=== PATIENT | male | born 1935 | race Caucasian/White ===

== ENCOUNTER 2017-12-06 11:20 | Observation (INO) ==
[2017-12-06] MEDS ORDERED: Isovue-370 500 ML INFUS..BTL IV ONE (12:39)
--- NOTE | 2017-12-06 12:46 | Emergency Department Note ---
Disposition Clinical Impression: Lower extremity edema, Elevated troponin I level CHF (congestive heart failure) Qualifiers: Heart failure type: unspecified Heart failure chronicity: acute Qualified Code( s): I50.9 - Heart failure, unspecified Ascites Qualifiers: Ascites type: other type Qualified Code(s): R18.8 - Other ascites Disposition: Admitted As Inpatient Condition: Fair Referrals: Timmy Pittman MD [Primary Care Provider] - Forms: ED Satisfaction Letter Time of Disposition: 17:10 General Adult HPI - General Chief complaint: ED Extremity Problem,Nontraumatic Stated complaint: bilat LE edema Time Seen by Provider: 12/06/17 11:32 Source: patient, family Mode of arrival: ambulatory Limitations: no limitations Nursing Notes Reviewed: Yes Vital Signs Reviewed: Yes - History of Present Illness HPI Narrative: The patient is a 82 year old male who presented with bilateral lower extremity edema. He stated his right leg has been swollen for the past two months but has worsened in the past few days and is now weeping from a sore on the lower leg. His left leg started to swell 2 days ago as well. He also reports orthopnea and dyspnea on exertion, constipation, and nausea for the past 2 months. He feels that his legs are heavy and cold. He reported feeling that his abdomen is swollen. He denied chest pain, leg pain, coughing, history of blood clots. 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 He states he lives at home alone and takes his own medications daily. His girlfriend is in the room who states he has been forgetting to take some of his medications recently. He had a colonoscopy 1 week ago due to his 2 month history of constipation and nausea and the patient stated this showed polyps. Onset (ago): month(s) (2) Pain Scale: 0 Consistency: Worsening Improves with: nothing Worsens with: nothing Associated symptoms: Reports: shortness of breath, weakness. Denies: chest pain , cough, fever/chills, nausea/vomiting Treatments Prior to Arrival: none - Related Data Home Medications Medication Instructions Recorded Confirmed Apixaban [Eliquis] 5 mg PO BID 12/06/17 12/06/17 Atorvastatin [Lipitor] 40 mg PO HS 12/06/17 12/06/17 Donepezil [Aricept] 5 mg PO HS 12/06/17 12/06/17 Lisinopril [Zestril] 40 mg PO DAILY 12/06/17 12/06/17 Memantine HCl 10 mg PO DAILY 12/06/17 12/06/17 Nitroglycerin [Nitrostat] 0.4 mg SL Q5M PRN MDD [id number] CALL 12/06/17 12/06/17 911 Torsemide [Torsemide] 5 mg PO DAILY 12/06/17 12/06/17 hydroCHLOROthiazide 25 mg PO DAILY 12/06/17 12/06/17 [Hydrochlorothiazide] metFORMIN [Glucophage] 1,000 mg PO BIDWM 12/06/17 12/06/17 Allergies Allergy/AdvReac Type Severity Reaction Status Date / Time mold Allergy Nausea Verified 03/16/17 16:34 Penicillins [PCN] Allergy Rash Verified 03/16/17 16:34 dust Allergy Nausea Uncoded 03/16/17 16:34 All systems ED: reviewed and negative except as stated. Constitutional: Reports: as per HPI, weakness, weight change (weight gain). Denies: fever, chills Cardiovascular: Reports: dyspnea on exertion, orthopnea, edema. Denies: chest pain Respiratory: Reports: dyspnea. Denies: cough, hemoptysis Gastrointestinal: Reports: nausea, constipation. Denies: abdominal pain, vomiting, diarrhea, hematemesis, melena, hematochezia Genitourinary: Denies: dysuria, hematuria Musculoskeletal: Denies: back pain, neck pain, arthralgia, myalgia Integumentary: Reports: other (2 cm weeping skin lesion on right medial lower leg ) Neurological: Reports: confusion. Denies: headache, weakness, numbness Allergic/Immunologic: Denies: facial swelling, urticaria Past Medical History - Past Medical History Attestation: Yes The following information was validated with the patient. Source: patient, obtained from family Medical history: Reports: atrial fibrillation, coronary artery disease, dementia , diabetes, hyperlipidemia, hypertension, other Surgical history: Reports: angioplasty/stent, pacemaker/AICD Psychiatric history: Reports: no psych history - Social History Smoking Status: Never smoker Smokeless Tobacco Status: No Alcohol use: Reports: none Drug use: Reports: none Physical Exam - General Limitations: no limitations General appearance: alert - Head Head exam: atraumatic, normocephalic - Eye Eye exam: Present: EOMI - Neck Neck exam: Present: normal inspection, full ROM, trachea midline - Chest Chest inspection: Present: normal inspection, symmetric chest wall rise - Respiratory Respiratory exam: Present: other (rales in right lower lobe). Absent: respiratory distress, wheezes, stridor - Cardiovascular Cardiovascular exam: Present: regular rate, normal rhythm, systolic murmur - Abdominal Exam Abdominal exam: Present: soft, Non-Tender, rigidity, normal bowel sounds, ascites. Absent: guarding, rebound - Extremities Exam Extremities exam: Present: pedal edema, other (2+ pitting edema in right leg up to middle thigh. 1+ pitting edema in left lower extremity up to proximal tibia. ). Absent: calf tenderness - Expanded Lower Extremity Exam Lower leg exam: Absent: tenderness, erythema, Homans' sign - Neurological Exam Neurological exam: Present: alert - Psychiatric Psychiatric exam: Present: normal affect, normal mood - Skin Skin exam: Present: other (2 cm weeping lesion on right medial lower leg. Brown- red skin discoloration consistent with venous stasis in right lower leg. Dorsalis pedis and posterior tibial pulses not palpable in bilateral lower extremities. Capillary refill 4 seconds in bilateral feet. ) Course Course Narrative: Patient seen and examined. Complaint of shortness of breath, orthopnea, pitting lower external edema worsening over the last 2 months. Also recently noticed his abdomen swelling. Bedside ED ultrasound did show signs of ascites. At bedside, patient does have 2+ pitting edema in the bilateral lower extremities. No calf tenderness. I do not feel that patient has DVTs. We will get bilateral ABIs since we are unable to palpate pulses. Also get CT imaging of the abdomen and pelvis since he is having this new onset ascites without any history of liver disease. We will get basic lab work as well as chest x-ray, troponin, BNP and EKG. - Reevaluation(s) Reevaluation #1: NNEKA exam was normal. Labwork shows some signs of congestive heart failure. His BNP elevated in the 600s. His troponin is also elevated at 0.06. Suspect this is more secondary to demand ischemia as he has not had any chest pain. We will give him an aspirin as well. CT of the abdomen and pelvis that showed mild to moderate amount of ascites with signs of possible cirrhosis of the liver. His LFTs are mildly elevated. We will admit for further workup of congestive heart failure, new onset ascites. Discussed with the hospitalist Dr. Mckenzie who has accepted patient for admission. Time: 17:10 Vital Signs Temperature 97.4 F L 12/06/17 11:47 Pulse Rate 87 12/06/17 11:47 Respiratory Rate 16 12/06/17 11:47 Blood Pressure 167/108 12/06/17 11:47 O2 Sat by Pulse Oximetry 94 12/06/17 11:47 Temperature 97.4 F L 12/06/17 11:56 Pulse Rate 72 12/06/17 13:36 Respiratory Rate 16 12/06/17 13:36 Blood Pressure 156/120 12/06/17 13:36 O2 Sat by Pulse Oximetry 98 12/06/17 13:36 Oxygen Delivery Oxygen Delivery Room Air Medical Decision Making - Medical Records Medical records reviewed: Yes I reviewed the patient's medical records. - Lab Data Lab results reviewed: Yes I reviewed the patient's lab results. Result diagrams: 12/06/17 12:29 12/06/17 12:29 Lab Results 12/06/17 12/06/17 12/06/17 Range/Units 12:21 12:29 12:29 WBC 7.9 (4.3-11.1) K/mcL RBC 4.96 (4.19-5.50) M/mcL Hgb 15.1 (12.9-16.9) g/dL Hct 46.2 (37.5-50.1) % MCV 93.1 (83.0-100.0) fL MCH 30.4 (28.0-33.3) pg MCHC 32.7 (31.6-35.5) g/dL RDW 15.5 H (11.5-14.5) % Plt Count 183 (140-400) K/mcL MPV 10.2 (9.4-12.4) fL Immature Gran % 0.4 (0-4) % Seg Neutrophils % 79.4 % Lymphocytes % 8.9 % Monocytes % 7.1 % Eosinophils % 3.7 % Basophils % 0.5 % Neutrophils # 6.3 (1.6-8.9) K/mcL Lymphocytes # 0.7 (0.6-4.6) K/mcL Monocytes # 0.6 (0.0-1.3) K/mcL Eosinophils # 0.3 (0.0-0.6) K/mcL Basophils # 0.0 (0.0-0.2) K/mcL PT (9.4-12.1) Seconds INR APTT (26.0-36.0) Seconds Sodium 134 L (136-145) mEq/L Potassium 4.1 (3.5-5.1) mEq/L Chloride 100 (98-107) mEq/L Carbon Dioxide 22 L (23-29) mEq/L BUN 22 (8-23) mg/dL Creatinine 0.95 (0.70-1.30) mg/dL Est GFR ( Amer) > 60 (> 60) Est GFR (Non-Af Amer) > 60 (> 60) BUN/Creatinine Ratio 23 (6-26) Glucose 112 H (70-105) mg/dL Calculated Osmolality 282 (280-300) Calcium 9.5 (8.6-10.3) mg/dL Total Bilirubin 2.0 H (0.3-1.0) mg/dL Direct Bilirubin 0.6 H (0.0-0.2) mg/dL Indirect Bilirubin 1.4 H (0.0-1.2) mg/dL AST 43 H (13-39) Units/L ALT 32 (7-52) Units/L Alkaline Phosphatase 164 H (34-104) Units/L Troponin I 0.06 H* (< 0.04) ng/mL B-Natriuretic Peptide 665 H (Less than 100) pg/mL Serum Total Protein 6.8 (6.4-8.9) g/dL Albumin 3.8 (3.5-5.7) g/dL Globulin 3.0 (2.4-3.5) g/dL Albumin/Globulin Ratio 1.3 (1.1-2.2) 12/06/17 Range/Units 12:39 WBC (4.3-11.1) K/mcL RBC (4.19-5.50) M/mcL Hgb (12.9-16.9) g/dL Hct (37.5-50.1) % MCV (83.0-100.0) fL MCH (28.0-33.3) pg MCHC (31.6-35.5) g/dL RDW (11.5-14.5) % Plt Count (140-400) K/mcL MPV (9.4-12.4) fL Immature Gran % (0-4) % Seg Neutrophils % % Lymphocytes % % Monocytes % % Eosinophils % % Basophils % % Neutrophils # (1.6-8.9) K/mcL Lymphocytes # (0.6-4.6) K/mcL Monocytes # (0.0-1.3) K/mcL Eosinophils # (0.0-0.6) K/mcL Basophils # (0.0-0.2) K/mcL PT 20.5 H (9.4-12.1) Seconds INR 1.8 APTT 35.3 (26.0-36.0) Seconds Sodium (136-145) mEq/L Potassium (3.5-5.1) mEq/L Chloride (98-107) mEq/L Carbon Dioxide (23-29) mEq/L BUN (8-23) mg/dL Creatinine (0.70-1.30) mg/dL Est GFR ( Amer) (> 60) Est GFR (Non-Af Amer) (> 60) BUN/Creatinine Ratio (6-26) Glucose (70-105) mg/dL Calculated Osmolality (280-300) Calcium (8.6-10.3) mg/dL Total Bilirubin (0.3-1.0) mg/dL Direct Bilirubin (0.0-0.2) mg/dL Indirect Bilirubin (0.0-1.2) mg/dL AST (13-39) Units/L ALT (7-52) Units/L Alkaline Phosphatase (34-104) Units/L Troponin I (< 0.04) ng/mL B-Natriuretic Peptide (Less than 100) pg/mL Serum Total Protein (6.4-8.9) g/dL Albumin (3.5-5.7) g/dL Globulin (2.4-3.5) g/dL Albumin/Globulin Ratio (1.1-2.2) - Radiology Data Radiology results reviewed: Yes I reviewed the patient's radiology results. Chest X-Ray 12/06/17 12:19 IMPRESSION: No acute findings D/ / Samara Heredia MD / Samara Heredia MD Interpreting Provider: Samara Heredia MD - EKG Data EKG #1 EKG attestation: Yes I reviewed and interpreted this EKG. EKG results narrative: EKG done at 1233 shows ventricular paced rhythm with a rate of 71 bpm. No signs of acute ST elevation or depression. Inverted T waves noted in leads 1 and aVL. Unchanged from prior EKG done 09/14/2013.
[2017-12-06 14:38] LABS: Basophils % 0.5 %; Eosinophils # 0.3 K/mcL (0.0-0.6); Eosinophils % 3.7 %; Hematocrit 46.2 % (37.5-50.1); Hemoglobin 15.1 g/dL (12.9-16.9); Immature Granulocytes % 0.4 % (0-4); Lymphocytes # 0.7 K/mcL (0.6-4.6); Lymphocytes % 8.9 %; Mean Corpuscular HGB Conc 32.7 g/dL (31.6-35.5); Mean Corpuscular Hemoglobin 30.4 pg (28.0-33.3); Mean Corpuscular Volume 93.1 fL (83.0-100.0); Mean Platelet Volume 10.2 fL (9.4-12.4); Monocytes # 0.6 K/mcL (0.0-1.3); Monocytes % 7.1 %; Neutrophils # 6.3 K/mcL (1.6-8.9); Platelet Count 183 K/mcL (140-400); Red Blood Count 4.96 M/mcL (4.19-5.50); Red Cell Distribution Width 15.5 % (11.5-14.5); Segmented Neutrophils % 79.4 %
[2017-12-06 14:43] LABS: INR 1.8; Prothrombin Time 20.5 Seconds (9.4-12.1)
--- NOTE | 2017-12-06 14:44 | Emergency Department Note ---
Disposition Clinical Impression: Lower extremity edema Disposition: Still a Patient Condition: Fair Referrals: Timmy Pittman MD [Primary Care Provider] - Forms: ED Satisfaction Letter General Adult HPI - General Chief complaint: ED Extremity Problem,Nontraumatic Stated complaint: bilat LE edema Time Seen by Provider: 12/06/17 11:32 Source: patient, family Mode of arrival: ambulatory Limitations: no limitations Nursing Notes Reviewed: Yes Vital Signs Reviewed: Yes - History of Present Illness Pain Scale: 0 - Related Data Home Medications Medication Instructions Recorded Confirmed Amlodipine Besylate 03/13/16 Aricept 03/13/16 Atorvastatin Calcium 03/13/16 Eliquis 03/13/16 Finasteride 03/13/16 Hydrochlorothiazide 03/13/16 Lisinopril 03/13/16 Metformin HCl 03/13/16 Namenda 03/13/16 Nitroglycerin 03/13/16 Tamsulosin HCl 03/13/16 Tramadol HCl 03/13/16 Tylenol 03/13/16 Allergies Allergy/AdvReac Type Severity Reaction Status Date / Time mold Allergy Nausea Verified 03/16/17 16:34 Penicillins [PCN] Allergy Rash Verified 03/16/17 16:34 dust Allergy Nausea Uncoded 03/16/17 16:34 Constitutional: Reports: as per HPI, weakness, weight change (weight gain). Denies: fever, chills Cardiovascular: Reports: dyspnea on exertion, orthopnea, edema. Denies: chest pain Respiratory: Reports: dyspnea. Denies: cough, hemoptysis Gastrointestinal: Reports: nausea, constipation. Denies: abdominal pain, vomiting, diarrhea, hematemesis, melena, hematochezia Genitourinary: Denies: dysuria, hematuria Musculoskeletal: Denies: back pain, neck pain, arthralgia, myalgia Integumentary: Reports: other (2 cm weeping skin lesion on right medial lower leg ) Neurological: Reports: confusion. Denies: headache, weakness, numbness Allergic/Immunologic: Denies: facial swelling, urticaria Past Medical History - Past Medical History Medical history: Reports: atrial fibrillation, coronary artery disease, dementia , diabetes, hyperlipidemia, hypertension, other Surgical history: Reports: angioplasty/stent, pacemaker/AICD Psychiatric history: Reports: no psych history - Social History Smoking Status: Never smoker Smokeless Tobacco Status: No Alcohol use: Reports: none Drug use: Reports: none Physical Exam - General Limitations: no limitations General appearance: alert Course Vital Signs Temperature 97.4 F L 12/06/17 11:47 Pulse Rate 87 12/06/17 11:47 Respiratory Rate 16 12/06/17 11:47 Blood Pressure 167/108 12/06/17 11:47 O2 Sat by Pulse Oximetry 94 12/06/17 11:47 Temperature 97.4 F L 12/06/17 11:56 Pulse Rate 72 12/06/17 13:36 Respiratory Rate 16 12/06/17 13:36 Blood Pressure 156/120 12/06/17 13:36 O2 Sat by Pulse Oximetry 98 12/06/17 13:36 Oxygen Delivery Oxygen Delivery Room Air Attestation Statement - Attestation Attestation: I, Rikki Tidwell, examined this patient and my medical decision-making was reviewed with the CARGO CHECKER/PA/Advanced Practice Nurse/Resident Physician. I agree with the documented findings, disposition and treatment plan as described except to the extent set forth below. 82-year-old male presents emergency Department with concerns of bilateral lower extremity edema as well as increasing weakness and difficulty breathing with ambulation. Patient states symptoms have been worsening over the past month and a half. Patient reports right lower extremity started swelling within the past month and now the left lower extremity history of swelling within the past few days. Patient has pain in the lower extremities with ambulation as well as dyspnea with exertion. On physical exam the patient has pitting edema to his lower abdomen. Bedside ultrasound showed free fluid within the abdominal cavity , patient states he has no history of previous liver disease. Patient had easily collapsible veins in the bilateral lower extremities at 3 separate points in the thigh as well as the popliteal region bilaterally, making DVT less likely. We had difficulty finding the pulses in the bilateral lower extremity in the dorsalis pedis and posterior tibial aspects by palpation and by Doppler. Pulses were easily found in the popliteal region bilaterally. Cap refill was 4 seconds in bilateral lower extremity. We obtained NNEKA to further evaluate arterial insufficiency. Laboratory evaluation and imaging studies pending at this time. Patient will likely be admitted to the hospital for further care and evaluation.
[2017-12-06 14:46] LABS: Activated Partial Thrombo Time 35.3 Seconds (26.0-36.0)
[2017-12-06 14:59] LABS: BUN/Creatinine Ratio 23 (6-26); Blood Urea Nitrogen 22 mg/dL (8-23); Calcium 9.5 mg/dL (8.6-10.3); Carbon Dioxide 22 mEq/L (23-29); Chloride 100 mEq/L (98-107); Glucose 112 mg/dL (70-105); Osmolality,Calculated 282 (280-300); Potassium 4.1 mEq/L (3.5-5.1); Sodium 134 mEq/L (136-145); eGFR For Non-African Americans > 60 (> 60)
[2017-12-06 15:04] LABS: Troponin I 0.06 ng/mL (< 0.04)
[2017-12-06] MEDS ORDERED: Furosemide 40 MG/4 ML VIAL IVP ONE (15:05)
[2017-12-06] MEDS ORDERED: Aspirin 325 MG TABLET PO ONE (15:11)
[2017-12-06 16:07] LABS: Alanine Aminotransferase 32 Units/L (7-52); Albumin 3.8 g/dL (3.5-5.7); Albumin/Globulin Ratio 1.3 (1.1-2.2); Alkaline Phosphatase 164 Units/L (34-104); Aspartate Amino Transferase 43 Units/L (13-39); Bilirubin,Direct 0.6 mg/dL (0.0-0.2); Bilirubin,Indirect 1.4 mg/dL (0.0-1.2); Total Protein 6.8 g/dL (6.4-8.9)
[2017-12-06 17:37] LABS: Bilirubin,Urine Negative (Negative); Blood,Urine Moderate (Negative); Clarity,Urine Clear (Clear); Color,Urine Yellow (Yellow); Glucose,Urine (UA) Normal (Normal); Ketones,Urine Negative (Negative); Leukocyte Esterase,Urine Negative (Negative); Nitrite,Urine Negative (Negative); Protein,Urine 100 mg/dL (Neg-Trace); Specific Gravity,Urine 1.012 (1.010-1.025); Urobilinogen,Urine Normal (Normal)
[2017-12-06 17:38] LABS: Bacteria,Urine None Seen per hpf (None-Few); Hyaline Casts,Urine None Seen per lpf (None-Few); RBC,Urine 30-50 per hpf (0-3); Squamous Epithelial Cell,Urine None Seen per lpf (None-Few); WBC,Urine 0-3 per hpf (0-3)
[2017-12-06] MEDS ORDERED: Naloxone 0.4 MG/ML INJ IVP PRN (18:09)
[2017-12-06] MEDS ORDERED: traMADol 50 MG TABLET PO PRN (18:09)
[2017-12-06] MEDS ORDERED: *HR* OxyCODONE Immed Rel 5 MG TABLET PO PRN (18:09)
[2017-12-06] MEDS ORDERED: Acetaminophen 325 MG TABLET PO PRN (18:09)
[2017-12-06] MEDS ORDERED: Nitroglycerin 0.4 MG TAB.SUBL SL PRN (18:12)
--- NOTE | 2017-12-06 18:20 | Internal Med History&Physical ---
Date of Encounter: 12/06/17 Time of Encounter: 17:50 Internal Medicine - H&P: HPI Chief complaint: Feet swelling Admitted From: Emergency Dept Plans for Post Hospital Care: Home History of present illness: Mr. Zhang is a 82 year old male with hx of a fib on Eliquis presented to ED due to bilateral lower extremity swelling and weakness. He was evaluated and subsequently placed in observation for further work up. Mr Zhang stated he has had progressive lower extremity swelling over the last 4 -6 weeks. He feels it has worsened over the last couple of days despite being on Demedex and HCTZ. He has also developed some orthopnea, PND and dyspnea on exertion that has been progressive. He has had persistent nausea over last couple months and did see GI. He had EGD which showed gastritis (? related to portal HTN) and colonoscopy which had polyps and otherwise negative. He has had worsening issues with memory as well over last few weeks. No fever or chills. He had some abdominal pain when he went to see GI but it is better today. At this time he is most concerned about his swelling. He had NNEKA in ED which was normal. BNP was elevated. CT in ED showed ascites and nodular liver. Past Med Surg Social Fam HX - Past Medical History Source: patient, old records reviewed Medical history: atrial fibrillation, coronary artery disease, dementia, diabetes, hyperlipidemia, hypertension, other Additional medical history: Pacemaker, BPH Psychiatric history: no psych history - Past Surgical History Surgical History: angioplasty/stent, pacemaker/AICD Additional surgical history: colonoscopy (polyp removal), L carpel tunnel release - Social History Smoking Status: Never smoker Smokeless Tobacco Status: No Alcohol use: none Drug use: none - Family History Father Hx Family Cardiac Disorders: Yes (heart disease) Mother Hx Family Cardiac Disorders: Yes (Heart disease) Internal Medicine - H&P: Meds Apixaban [Eliquis] 5 mg PO BID 12/06/17 [History] Atorvastatin [Lipitor] 40 mg PO HS 12/06/17 [History] Donepezil [Aricept] 5 mg PO HS 12/06/17 [History] Lisinopril [Zestril] 40 mg PO DAILY 12/06/17 [History] Memantine HCl 10 mg PO DAILY 12/06/17 [History] Nitroglycerin [Nitrostat] 0.4 mg SL Q5M PRN MDD [id number] CALL 911 12/06/17 [ History] Torsemide [Torsemide] 5 mg PO DAILY 12/06/17 [History] hydroCHLOROthiazide [Hydrochlorothiazide] 25 mg PO DAILY 12/06/17 [History] metFORMIN [Glucophage] 1,000 mg PO BIDWM 12/06/17 [History] 3 Allergy/AdvReac Type Severity Reaction Status Date / Time mold Allergy Nausea Verified 03/16/17 16:34 Penicillins [PCN] Allergy Rash Verified 03/16/17 16:34 dust Allergy Nausea Uncoded 03/16/17 16:34 All Systems PM: A 10-system review of systems was performed and is negative for pertinent findings except as documented above in the HPI. - Constitutional Constitutional: fatigue, weakness, weight gain - EENT Eyes: no blurry vision, no discharge, no photophobia Ears: no decreased hearing Nose, mouth and throat: no dry mouth, no dysphagia, no mouth pain, no sinus pressure, no sore throat - Cardiovascular Cardiovascular ROS IM: dyspnea, dyspnea on exertion, edema, orthopnea, paroxysmal nocturnal dyspnea, no chest pain, no claudication, no diaphoresis - Respiratory Respiratory: dyspnea, dyspnea on exertion, no wheezing, no chest congestion, no pain with cough - Gastrointestinal Gastrointestinal: abdominal pain, bloating, nausea, vomiting, no diarrhea, no dyspepsia, no hematemesis - Genitourinary Genitourinary ROS male: urinary frequency, no dysuria, no nocturia - Musculoskeletal Musculoskeletal ROS IM: arthralgias, no joint swelling, no stiffness - Integumentary Integumentary IM: no erythema, no rash - Neurological Neurological ROS: memory loss, no dizziness, no focal weakness, no weakness - Endocrine Endocrine IM: no cold intolerance, no flushing, no heat intolerance - Hematologic/Lymphatic Hematologic/Lymphatic: easy bleeding (Eliquis) - Allergic/Immunologic Allergic/Immunologic: no itchy eyes, no wheezing - Constitutional Vitals: Temp Pulse Resp BP Pulse Ox 97.4 F L 72 16 156/120 98 12/06/17 11:56 12/06/17 13:36 12/06/17 13:36 12/06/17 13:36 12/06/17 13:36 General appearance: Present: A&O X 3, pleasant, answers questions appropriately Exam: See below - Head Head exam: Present: atraumatic, normocephalic - Eye Eye exam: Present: EOMI, conjuntiva pink. Absent: scleral icterus - ENT ENT exam: Present: mucous membranes moist, normal external ear exam - Neck Neck exam general surgery: Present: normal inspection. Absent: thyromegaly - Respiratory Respiratory exam: Present: decreased breath sounds, CTAB. Absent: rales, rhonchi, wheezes - Cardiovascular Cardiovascular exam: Present: distant heart sounds, RRR. Absent: tachycardia Additional comments: Paced on monitor - GI/Abdominal GI/Abdominal exam: Present: distended, hypoactive bowel sounds, soft. Absent: mass, tenderness - Extremities Exam Extremities exam: Present: tenderness, warm Additional comments: Dependent rubor noted. Edema to thighs bilaterally. - Neurological Exam Neurological exam: Present: alert, oriented X3, no focal deficits Additional comments: No asterixis - Skin Skin exam: Present: dry, warm Additional comments: Dependent rubor Internal Med - H&P Results - Labs CBC & Chem 7: 12/06/17 12:29 12/06/17 12:29 - Assessment and plan (1) CHF (congestive heart failure) Current Visit: Yes Status: Suspected Assessment and plan: Pt has edema, dyspnea, orthopnea and PND Has hx of CAD and a fib Will check echo to eval LVEF Continue diuresis Monitor renal function and electrolytes Qualifiers: Heart failure type: systolic Heart failure chronicity: acute Qualified Code(s): I50.21 - Acute systolic (congestive) heart failure (2) Cirrhosis Current Visit: Yes Status: Acute Assessment and plan: Pt has evidence of cirrhosis on CT of abdomen. Has ascites as well. Edema of bilateral lower extremities. Will place in observation. Diurese. Hold statin and metformin Check hepatitis studies tonight and ammonia level. May benefit from GI consult depending on results. Hold Eliquis in event he needs paracentesis Qualifiers: Hepatic cirrhosis type: unspecified hepatic cirrhosis Ascites presence: with ascites Qualified Code(s): K74.60 - Unspecified cirrhosis of liver; R18.8 - Other ascites (3) Atrial fibrillation Current Visit: Yes Status: Chronic Assessment and plan: Hx of atrial fibrillation. Has pacer due to bradycardia. Continue his rate control meds. Hold Eliquis tonight in case needs any procedure. Qualifiers: Atrial fibrillation type: chronic Qualified Code(s): I48.2 - Chronic atrial fibrillation (4) Diabetes Current Visit: Yes Status: Chronic Assessment and plan: Hold metformin and add SSI. Accuchecks ordered. Qualifiers: Diabetes mellitus type: type 2 Diabetes mellitus manager terminal insulin use: without manager terminal use Diabetes mellitus complication status: without complication Qualified Code(s): E11.9 - Type 2 diabetes mellitus without complications (5) Hypertension Current Visit: Yes Status: Chronic Assessment and plan: Controlled at this time Continue Lisinopril Holding HCTZ while giving Lasix IV Qualifiers: Hypertension type: essential hypertension Qualified Code(s): I10 - Essential (primary) hypertension (6) BPH (benign prostatic hyperplasia) Current Visit: Yes Status: Chronic Assessment and plan: On Proscar. Qualifiers: Lower urinary tract symptom presence: symptoms absent Qualified Code(s): N40.0 - Benign prostatic hyperplasia without lower urinary tract symptoms (7) Dementia Current Visit: Yes Status: Chronic Assessment and plan: Hx of dementia on Aricept and Namenda Continue meds for now. Check ammonia level as reportedly his memory is worse recently. Qualifiers: Dementia type: Alzheimer's disease Alzheimer's disease onset: late-onset Dementia behavioral disturbance: without behavioral disturbance Qualified Code (s): G30.1 - Alzheimer's disease with late onset; F02.80 - Dementia in other diseases classified elsewhere without behavioral disturbance - Time Spent With Patient Total time spent is greater than 50% in coordination of care (as documented) at patient's floor/unit and/or counseling patient:
[2017-12-06] MEDS ORDERED: D5% in Water 1,000 ML IVC PRN (18:39)
[2017-12-06] MEDS ORDERED: *HR* Dextrose 50 % in Water (Syg) 50 ML SYRINGE IVP PRN (18:39)
[2017-12-06] MEDS ORDERED: Dextrose Gel 15 GM/37.5 ML TUBE PO PRN ×2 (18:39)
[2017-12-06] MEDS ORDERED: Apixaban 5 MG TABLET PO SCH (21:00)
[2017-12-06 21:06] LABS: Estimated Average Glucose 151 mg/dl; Hemoglobin A1C 6.9 %
[2017-12-06] MEDS: Insulin LISPRO 300 UNITS/3 ML VIAL SQ SCH (21:57)
[2017-12-07 02:41] LABS: Basophils % 0.4 %; Eosinophils # 0.4 K/mcL (0.0-0.6); Eosinophils % 5.6 %; Hematocrit 41.2 % (37.5-50.1); Immature Granulocytes % 0.4 % (0-4); Lymphocytes # 0.7 K/mcL (0.6-4.6); Lymphocytes % 9.2 %; Mean Corpuscular HGB Conc 32.3 g/dL (31.6-35.5); Mean Corpuscular Hemoglobin 29.9 pg (28.0-33.3); Mean Corpuscular Volume 92.6 fL (83.0-100.0); Mean Platelet Volume 9.9 fL (9.4-12.4); Monocytes # 0.7 K/mcL (0.0-1.3); Monocytes % 10.2 %; Neutrophils # 5.3 K/mcL (1.6-8.9); Platelet Count 169 K/mcL (140-400); Red Blood Count 4.45 M/mcL (4.19-5.50); Red Cell Distribution Width 15.3 % (11.5-14.5); Segmented Neutrophils % 74.2 %
[2017-12-07 02:45] LABS: Hemoglobin 13.3 g/dL (12.9-16.9)
[2017-12-07 02:56] LABS: BUN/Creatinine Ratio 25 (6-26); Blood Urea Nitrogen 25 mg/dL (8-23); Calcium 9.2 mg/dL (8.6-10.3); Carbon Dioxide 27 mEq/L (23-29); Chloride 100 mEq/L (98-107); Chol/HDL Ratio 4.9 (0-4.9); Cholesterol 113 mg/dL (< 200); Glucose 125 mg/dL (70-105); HDL Cholesterol 23 mg/dL (40-59); LDL Cholesterol,Calculated 75 mg/dL (0-99); Magnesium 1.7 mg/dL (1.6-2.6); Osmolality,Calculated 288 (280-300); Sodium 136 mEq/L (136-145); Triglycerides 75 mg/dL (< 150); eGFR For Non-African Americans > 60 (> 60)
[2017-12-07] MEDS: Insulin LISPRO 300 UNITS/3 ML VIAL SQ SCH ×4 (07:26→21:26)
[2017-12-07] MEDS: Lisinopril 20 MG TABLET PO SCH (07:36)
[2017-12-07] MEDS: Furosemide 20 MG/2 ML VIAL IVP SCH ×2 (07:36→17:18)
--- NOTE | 2017-12-07 08:49 | Internal Med Progress Note ---
<Gaudencio Cavanaugh - Last Filed: 12/07/17 13:55> Hospitalist Progress Note - Encounter Date of Encounter: 12/07/17 Time of Encounter: 09:00 - Subjective Interval History: Patient seen and examined at bedside. Patient reports continued abdominal discomfort, states this is his chief complaint. However, patient is found to be in an acute CHF exacerbation based on BNP and fluid status, possibly due to non- adherence of his diuretic medications at home in the context of increasing dementia. Patient does indicate that he feels better since his admission. He has been voiding well, -1,225mL since admission. He continues to deny chest pain , dyspnea at rest, fever, chills, wheezing, coughing. No new complaints since admission. Patient currently awaiting bedside Echo. - Exam Vitals: Temp Pulse Resp BP Pulse Ox 97.5 F L 71 14 149/98 90 12/07/17 06:16 12/07/17 06:16 12/07/17 06:16 12/07/17 08:15 12/07/17 06:16 Exam: General: Atraumatic normocephalic Eyes: EOMI, non-icteric Throat: mucus membranes moist, trachea midline, no thyromegaly, no lymphadenopathy CV: heart sounds distant, regular rate, paced rythym, no murmurs Resp: distant lung sounds, CTAB, no wheezes or rales ABD: +fluid wave, mildly distended, non-tender to palpation, no rigidity, guarding or rebound Extremities: BLE edema (+2 pretibial right, +1 pretibial left), nonpalpable pedal pulses Skin: Excoriations and "punched out" ulcerations present on legs, capillary refill of 4 seconds, mild venous stasis skin discoloration - Assessment and Plan (1) CHF (congestive heart failure) Current Visit: Yes Status: Acute Assessment and Plan: Patient with known history of CHF - Presents with increasing BLE edema, orthopnea, and PND - Currently not SOB, not on oxygen at home, denies dyspnea at rest, non-smoker - BNP on admission 665, BUN/Cr 25/1.0, likely Pre-Renal hypervolemia - Troponins 0.06 -> 0.05, no chest pain/palpitations; likely demand ischemia, will trend - Demedex and HCTZ at home; however pt admits to worsening dementia, states he may have missed some - Pt fluid status since hospital admission: -1225mL, will continue to follow - CXR normal, CT abd showed moderate ascites with mild right pleural effusion, no cardiomegaly PLAN: - Will check echo to evaluate LVEF, 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 - Continue to diurese, Lasix 20mg IV BID - Will monitor renal function, currently wnl - Continue with strict I/O and fluid restriction (2) Cirrhosis Current Visit: Yes Status: Acute Assessment and Plan: - CT Abd/pelvis demonstrated liver nodularity and moderate ascites - EGD/C-scope performed 12/01/17 showed gastritis and hemorrhoids, no esophageal varices - (3) Atrial fibrillation Current Visit: Yes Status: Chronic (4) Diabetes Current Visit: Yes Status: Chronic Assessment and Plan: Hold Metformin, start SSI and accuchecks (5) Hypertension Current Visit: Yes Status: Chronic Assessment and Plan: Controlled at this time Continue Lisinopril (6) Dementia Current Visit: Yes Status: Chronic Assessment and Plan: Worsening dementia, ammonia levels normal Continue Nemenda and Donepezil (7) BPH (benign prostatic hyperplasia) Current Visit: Yes Status: Chronic Assessment and Plan: Continue home Proscar - Time Spent with Patient Total time spent is greater than 50% in coordination of care (as documented) at patient's floor/unit and/or counseling patient: Internal Medicine: Result - Labs CBC & Chem 7: 12/07/17 02:16 12/07/17 02:16 Labs: Short CBC 12/07/17 Range/Units 02:16 WBC 7.2 (4.3-11.1) K/mcL Hgb 13.3 D (12.9-16.9) g/dL Hct 41.2 (37.5-50.1) % Plt Count 169 (140-400) K/mcL Neutrophils # 5.3 (1.6-8.9) K/mcL BMP 12/07/17 02:16 Sodium 136 Potassium 4.0 Chloride 100 Carbon Dioxide 27 BUN 25 H Creatinine 1.00 Glucose 125 H Calcium 9.2 Cardiac Enzymes 18 12/07/17 Range/Units 20:00 02:16 Troponin I 0.05 H* 0.05 H* (< 0.04) ng/mL - ABG Interpretation ABG results: PT/INR, D-dimer PT 20.5 Seconds (9.4-12.1) H 12/06/17 12:39 Consult Discharge Plan - Plan Referrals: Timmy Pittman MD [Primary Care Provider] - <Elizabeth Ruiz - Last Filed: 12/07/17 14:41> Hospitalist Progress Note - Encounter Date of Encounter: 12/07/17 Time of Encounter: 08:45 - Subjective Interval History: Patient can reports that he has been having intermittent abdominal pain that improves when he eats. Denies any nausea or vomiting. Has been having good urine output overall. No fevers or chills reported overnight. No chest pain or palpitations. - Exam Vitals: Temp Pulse Resp BP Pulse Ox 97.5 F L 93 15 132/79 95 12/07/17 10:58 12/07/17 10:58 12/07/17 10:58 12/07/17 10:58 12/07/17 10:58 Exam: General: Patient is alert, mild distress, oriented x 3 Head: atraumatic, normocephalic, Neck: normal inspection, trachea midline, full ROM, no carotid bruits Chest: normal inspection, symmetric chest rise Respiratory: Good respiratory effort. Normal breath sounds. No wheezing or crackles. Cardiovascular: Regular rate and rhythm. s1 and s2 No clicks, rubs, gallops, or murmurs. Bilateral pitting pedal edema Abdomen: Abdomen is soft, distended, nontender. Bowel sounds are present Musculoskeletal: Spontaneously moving all extremities Skin: Stasis dermatitis changes in both lower extremities Neuro: Alert oriented x 3 normal cranial nerves, no focal deficits Psych: Patient's affect is normal - Assessment and Plan (1) CHF (congestive heart failure) Current Visit: Yes Status: Suspected Assessment and Plan: Continue IV Lasix. Awaiting 2-D echocardiogram results. Patient has had good diuresis so far. (2) Cirrhosis Current Visit: Yes Status: Acute Assessment and Plan: Etiology uncertain. Check hepatitis viral panel and liver ultrasound. (3) Atrial fibrillation Current Visit: Yes Status: Chronic Assessment and Plan: Rate controlled. Eliquis held in anticipation for possible paracentesis. If liver ultrasound does not show significant gastritis, will resume Eliquis. (4) Diabetes Current Visit: Yes Status: Chronic Assessment and Plan: Fairly controlled. On sliding scale insulin (5) Hypertension Current Visit: Yes Status: Chronic Assessment and Plan: Blood pressure was elevated this morning. Will continue to monitor. If persistently elevated, will add beta victoriano (6) BPH (benign prostatic hyperplasia) Current Visit: Yes Status: Chronic Assessment and Plan: Patient currently having good urine output. Reported to be on Proscar at home. However home med list here does not show this medication. We will confirm with pharmacy. (7) Dementia Current Visit: Yes Status: Chronic Assessment and Plan: Continue Namenda and Aricept DVT Prophylaxis: Will place patient on subcutaneous heparin for now. - Time Spent with Patient Total time spent is greater than 50% in coordination of care (as documented) at patient's floor/unit and/or counseling patient: Internal Medicine: Result - Labs CBC & Chem 7: 12/07/17 02:16 12/07/17 02:16 Labs: Short CBC 12/07/17 Range/Units 02:16 WBC 7.2 (4.3-11.1) K/mcL Hgb 13.3 D (12.9-16.9) g/dL Hct 41.2 (37.5-50.1) % Plt Count 169 (140-400) K/mcL Neutrophils # 5.3 (1.6-8.9) K/mcL BMP 12/07/17 02:16 Sodium 136 Potassium 4.0 Chloride 100 Carbon Dioxide 27 BUN 25 H Creatinine 1.00 Glucose 125 H Calcium 9.2 Cardiac Enzymes 12/06/17 12/07/17 12/07/17 Range/Units 20:00 02:16 08:33 Troponin I 0.05 H* 0.05 H* 0.06 H* (< 0.04) ng/mL - ABG Interpretation ABG results: PT/INR, D-dimer PT 20.5 Seconds (9.4-12.1) H 12/06/17 12:39 - Attending Attestation The history, physical exam, and medical decision making was performed by the medical student either while I was physically present and actively involved or I personally re-performed the exam and medical decision making. I have verified the accuracy of the medical student's documentation with regards to the history, physical exam findings, and medical decision making on 12/07/17 <Gaudencio Cavanaugh - Last Filed: 12/07/17 13:55> (2) Cirrhosis Qualifiers: Hepatic cirrhosis type: unspecified hepatic cirrhosis Ascites presence: with ascites Qualified Code(s): K74.60 - Unspecified cirrhosis of liver; R18.8 - Other ascites (3) Atrial fibrillation Qualifiers: Atrial fibrillation type: chronic Qualified Code(s): I48.2 - Chronic atrial fibrillation (4) Diabetes Qualifiers: Diabetes mellitus type: type 2 Diabetes mellitus half-way insulin use: without half-way use Diabetes mellitus complication status: without complication Qualified Code(s): E11.9 - Type 2 diabetes mellitus without complications (5) Hypertension Qualifiers: Hypertension type: essential hypertension Qualified Code(s): I10 - Essential (primary) hypertension (6) Dementia Qualifiers: Dementia type: Alzheimer's disease Alzheimer's disease onset: late-onset Dementia behavioral disturbance: without behavioral disturbance Qualified Code( s): G30.1 - Alzheimer's disease with late onset; F02.80 - Dementia in other diseases classified elsewhere without behavioral disturbance (7) BPH (benign prostatic hyperplasia) Qualifiers: Lower urinary tract symptom presence: symptoms absent Qualified Code(s): N40.0 - Benign prostatic hyperplasia without lower urinary tract symptoms <Elizabeth Ruiz - Last Filed: 12/07/17 14:41> (1) CHF (congestive heart failure) Qualifiers: Heart failure type: systolic Heart failure chronicity: acute Qualified Code( s): I50.21 - Acute systolic (congestive) heart failure (2) Cirrhosis Qualifiers: Hepatic cirrhosis type: unspecified hepatic cirrhosis Ascites presence: with ascites Qualified Code(s): K74.60 - Unspecified cirrhosis of liver; R18.8 - Other ascites (3) Atrial fibrillation Qualifiers: Atrial fibrillation type: chronic Qualified Code(s): I48.2 - Chronic atrial fibrillation (4) Diabetes Qualifiers: Diabetes mellitus type: type 2 Diabetes mellitus dedicated intermodal truck driver insulin use: without dedicated intermodal truck driver use Diabetes mellitus complication status: without complication Qualified Code(s): E11.9 - Type 2 diabetes mellitus without complications (5) Hypertension Qualifiers: Hypertension type: essential hypertension Qualified Code(s): I10 - Essential (primary) hypertension (6) BPH (benign prostatic hyperplasia) Qualifiers: Lower urinary tract symptom presence: symptoms absent Qualified Code(s): N40.0 - Benign prostatic hyperplasia without lower urinary tract symptoms (7) Dementia Qualifiers: Dementia type: Alzheimer's disease Alzheimer's disease onset: late-onset Dementia behavioral disturbance: without behavioral disturbance Qualified Code( s): G30.1 - Alzheimer's disease with late onset; F02.80 - Dementia in other diseases classified elsewhere without behavioral disturbance
[2017-12-07] MEDS: *HR* Heparin 5,000 UNIT/ML VIAL SQ SCH (17:18)
[2017-12-08 03:15] LABS: Hepatitis A Antibody IgM Nonreactive (Nonreactive); Hepatitis B Core IgM Nonreactive (Nonreactive); Hepatitis B Surface Antigen Nonreactive (Nonreactive); Hepatitis C Virus Antibody Nonreactive (Nonreactive)
[2017-12-08] MEDS: *HR* Heparin 5,000 UNIT/ML VIAL SQ SCH (06:24)
[2017-12-08] MEDS: Insulin LISPRO 300 UNITS/3 ML VIAL SQ SCH ×4 (08:05→20:05)
[2017-12-08] MEDS: Lisinopril 20 MG TABLET PO SCH (08:12)
[2017-12-08] MEDS: Furosemide 20 MG/2 ML VIAL IVP SCH ×2 (08:12→17:47)
[2017-12-08 08:49] LABS: INR 1.4; Prothrombin Time 15.7 Seconds (9.4-12.1)
--- NOTE | 2017-12-08 08:55 | Internal Med Progress Note ---
<Gaudencio Cavanaugh M - Last Filed: 12/08/17 12:45> Hospitalist Progress Note - Encounter Date of Encounter: 12/08/17 Time of Encounter: 08:00 - Subjective Interval History: Patient seen and examined at bedside. Patient asleep at the time of interview. Nursing reports he fell overnight while attempting to ambulate to use the bathroom. Patient states that he think he may have hit his head and his left hip. Head CT performed this morning showed no sign of acute intracranial process and there is no sign of any bruising anywhere on examination. Nursing held his morning SQ Heparin following the fall. Patient remains AxO X3 and voices a strong desire to go home today. He continues to void well and his fluid status seems to be improving. Denies any new or worsening complaints at this time. Echo performed yesterday showed Systolic on Diastolic HF with EF of 35%. Will try to obtain old records today. Continue Fluid Restriction. Eliquis still on hold at this time. - Exam Vitals: Temp Pulse Resp BP Pulse Ox 98.1 F 73 16 146/76 94 12/08/17 07:49 12/08/17 07:49 12/08/17 07:49 12/08/17 07:49 12/08/17 07:49 Exam: General: Patient is alert, mild distress, oriented x 3 Head: atraumatic, normocephalic, Neck: normal inspection, trachea midline Respiratory: Good respiratory effort. Distant breath sounds. Mild crackles but no wheezing. Cardiovascular: Regular rate and rhythm. s1 and s2 No clicks, rubs, gallops, or murmurs. Bilateral pitting pedal edema Abdomen: Abdomen is soft, distended, nontender. Bowel sounds are present Musculoskeletal: Spontaneously moving all extremities. No evidence of any echymosis. Skin: Stasis dermatitis changes in both lower extremities Neuro: Alert oriented x 3 normal cranial nerves, no focal deficits Psych: Patient's affect is normal - Assessment and Plan (1) CHF (congestive heart failure) Current Visit: Yes Status: Acute Assessment and Plan: - Presents with increasing BLE edema, orthopnea, and PND - Currently not SOB, not on oxygen at home, denies dyspnea at rest, non-smoker - BNP on admission 665, BUN/Cr 25/1.0, likely Pre-Renal hypervolemia - EKG unchanged from prior study, no ST elevations or depressions - Troponins 0.06 -> 0.05, no chest pain/palpitations; likely demand ischemia, will trend - Etiology possibly 2/2 medication non-adherance but cannot rule out ischemic Cardiomyopathy - Pt fluid status since hospital admission: -2125mL, will continue to follow - CXR normal, CT abd showed moderate ascites with mild right pleural effusion, no cardiomegaly - Echo: Moderate LV Systolic Dys.(EF 35%) and Severe LV Diastolic Dys. PLAN: - Will obtain old records to compare Echo - Continue to diurese, Lasix 20mg IV BID - Will monitor renal function, currently at baseline - Continue fluid restriction and strict I/O monitoring (2) Cirrhosis Current Visit: Yes Status: Acute Assessment and Plan: Unknown history of Cirrhosis - CT Abd/pelvis demonstrated liver nodularity and moderate ascites - EGD/C-scope performed 12/01/17 showed gastritis and hemorrhoids, no esophageal varices - T.Bili 2.0, AST 43, Alk. Phos. 164, ammonia 24, Prothrombin Time 20.5 - Etiology unknown; denies history of alcohol abuse - Liver ultrasound 12/07/17: normal sonographic appearance of liver, ascites present - Viral Hepatitis Panel: nonreactive PLAN: - IR consulted to perform possible paracentesis - Follow-up outpatient with GI for further evaluation (3) Atrial fibrillation Current Visit: Yes Status: Chronic Assessment and Plan: Known history of Afib - Anticoagulation on hold following overnight Fall (Head CT normal) - Currently rate controlled - Not on rate/rhythm medications at home - Eliquis for stroke prevention; on hold s/p fall and possible paracentesis (4) Diabetes Current Visit: Yes Status: Chronic Assessment and Plan: Known history of T2DM - On Metformin at home, currently on hold - POC Glucose 125, A1C 6.9 - Accuchecks and Low-Dose SSI (5) Hypertension Current Visit: Yes Status: Chronic Assessment and Plan: Known history of HTN - BP has been elevated during hospital stay - 175/98 this morning - Continue home meds (lisinopril 40) - Will continue to monitor (6) Dementia Current Visit: Yes Status: Chronic Assessment and Plan: Known history of Dementia - Patient acknowledges symptoms have been worsening - Ammonia levels normal - Continue his home Nemenda and Donepezil - Fall precautions (7) BPH (benign prostatic hyperplasia) Current Visit: Yes Status: Chronic Assessment and Plan: Patient currently has good urine output. (8) DVT prophylaxis Current Visit: Yes Status: Chronic Assessment and Plan: Patient placed on subcutaneous heparin. DVT Prophylaxis: Will place patient on subcutaneous heparin for now. - Time Spent with Patient Total time spent is greater than 50% in coordination of care (as documented) at patient's floor/unit and/or counseling patient: Internal Medicine: Result - Labs CBC & Chem 7: 12/07/17 02:16 12/07/17 02:16 Labs: Cardiac Enzymes 12/07/17 Range/Units 08:33 Troponin I 0.06 H* (< 0.04) ng/mL - ABG Interpretation ABG results: PT/INR, D-dimer PT 20.5 Seconds (9.4-12.1) H 12/06/17 12:39 - Impressions Impressions Echocardiogram 12/07/17 18:41 Impressions: Normal LV chamber size. Moderate global left ventricular systolic dysfunction. LVEF 35%. Severe left ventricular diastolic dysfunction. Mildly dilated right ventricle. Severe right ventricular hypokinesis. Severely dilated left and right atrium. Mild aortic regurgitation. Mild pulmonic regurgitation. Moderate-severe tricuspid regurgitation. Mild-moderate mitral regurgitation. Moderate pulmonary hypertension. Estimated RVSP is 56 mmHg. Large pleural effusion. Left Ventricular Wall Motion: Rest Echo Findings All wall segments showed normal motion. Findings: Study Quality * Technically adequate exam. ECG Findings * Paced rhythm. Left Ventricle * LVEF 35%. * Normal LV chamber size. * Moderate global left ventricular systolic dysfunction. * Severe left ventricular diastolic dysfunction. Right Ventricle * Severe right ventricular hypokinesis. * Mildly dilated right ventricle. Left Atrium * Severely dilated left atrium. Right Atrium * Severely dilated right atrium. Interatrial Septum * There is a small interatrial shunt by color Doppler. Aortic Valve * Trileaflet aortic valve. * Mildly calcified aortic valve leaflets. * Mild aortic regurgitation. * No aortic stenosis. Mitral Valve * Mild mitral regurgitation. Tricuspid Valve * Moderate-severe tricuspid regurgitation. * Estimated RVSP is 56 mmHg. * Estimated RA pressure is 15 mmHg. * Moderate pulmonary hypertension. Pulmonic Valve * Mild pulmonic regurgitation. Aorta * Normally sized aortic root. Pericardium * The pericardium appears normal. IVC * The IVC is dilated. * < 50% respiratory change. Pleural Effusion * Large pleural effusion. Liver Ultrasound 12/07/17 20:00 IMPRESSION: 1. Normal sonographic appearance of the liver. 2. Ascites. 3. Gallbladder wall thickening is nonspecific in the setting of ascites. There is no cholelithiasis or sonographic evidence for acute cholecystitis. D/ / Earl Donis MD / Earl Donis MD Interpreting Provider: Earl Donis MD Head CT 12/08/17 05:47 IMPRESSION: 1. No acute intracranial abnormality. D/ / Ruben Zarate MD / Ruben Zarate MD Interpreting Provider: Ruben Zarate MD Consult Discharge Plan - Plan Referrals: Timmy Pittman MD [Primary Care Provider] - <Elizabeth Ruiz - Last Filed: 12/08/17 13:46> Hospitalist Progress Note - Encounter Date of Encounter: 12/08/17 Time of Encounter: 07:45 - Subjective Interval History: Patient is awake and alert. He complains of abdominal pain but it is improving. Did have a fall last night with possible injury to his head. CT scan was done and. He denies any focal weakness or numbness. No headaches. He feels much better now. He has had good urine output with the Lasix. - Exam Vitals: Temp Pulse Resp BP Pulse Ox 97.4 F L 69 18 134/80 99 12/08/17 11:00 12/08/17 11:00 12/08/17 11:00 12/08/17 11:00 12/08/17 11:00 Exam: General: Patient is alert, mild distress, oriented x 3 Head: atraumatic, normocephalic, Respiratory: Good respiratory effort. Basal crackles. No wheezing. Cardiovascular: Regular rate and rhythm. s1 and s2 normal. No clicks, rubs, gallops, or murmurs. Bilateral pedal edema Abdomen: Abdomen is soft, distended, nontender. Bowel sounds are present Musculoskeletal: Spontaneously moving all extremities Neuro: Alert oriented x 3 ,normal cranial nerves, no focal deficits Psych: Patient's affect is normal - Assessment and Plan (1) CHF (congestive heart failure) Current Visit: Yes Status: Acute Assessment and Plan: 2-D echocardiogram shows poor ejection fraction with EF of 35% with severe left ventricle and diastolic dysfunction. Requesting records from his [facility] regarding his prior echocardiograms to assess for any changes. Will continue Lasix in the meantime. Patient having good urine output. (2) Cirrhosis Current Visit: Yes Status: Acute Assessment and Plan: Hepatitis viral panel was negative. Ultrasound of the liver showed normal sonographic appearance. He does have ascites. Will consult IR for paracentesis. (3) Atrial fibrillation Current Visit: Yes Status: Chronic Assessment and Plan: Rate controlled. We will resume the Eliquis after paracentesis done. (4) Diabetes Current Visit: Yes Status: Chronic (5) Hypertension Current Visit: Yes Status: Chronic Assessment and Plan: Blood pressure was elevated earlier this morning. We will start low-dose beta victoriano. (6) BPH (benign prostatic hyperplasia) Current Visit: Yes Status: Chronic Assessment and Plan: Currently not on any medications. He does have good urine output. (7) Dementia Current Visit: Yes Status: Chronic Assessment and Plan: Continue Aricept and Namenda DVT Prophylaxis: On subcutaneous heparin - Time Spent with Patient Total time spent is greater than 50% in coordination of care (as documented) at patient's floor/unit and/or counseling patient: Internal Medicine: Result - Labs CBC & Chem 7: 12/07/17 02:16 12/07/17 02:16 Labs: Liver Function 12/08/17 Range/Units 12:10 Albumin 3.4 L (3.5-5.7) g/dL - ABG Interpretation ABG results: PT/INR, D-dimer PT 15.7 Seconds (9.4-12.1) H 12/08/17 08:16 - Impressions Impressions Echocardiogram 12/07/17 18:41 Impressions: Normal LV chamber size. Moderate global left ventricular systolic dysfunction. LVEF 35%. Severe left ventricular diastolic dysfunction. Mildly dilated right ventricle. Severe right ventricular hypokinesis. Severely dilated left and right atrium. Mild aortic regurgitation. Mild pulmonic regurgitation. Moderate-severe tricuspid regurgitation. Mild-moderate mitral regurgitation. Moderate pulmonary hypertension. Estimated RVSP is 56 mmHg. Large pleural effusion. Left Ventricular Wall Motion: Rest Echo Findings All wall segments showed normal motion. Findings: Study Quality * Technically adequate exam. ECG Findings * Paced rhythm. Left Ventricle * LVEF 35%. * Normal LV chamber size. * Moderate global left ventricular systolic dysfunction. * Severe left ventricular diastolic dysfunction. Right Ventricle * Severe right ventricular hypokinesis. * Mildly dilated right ventricle. Left Atrium * Severely dilated left atrium. Right Atrium * Severely dilated right atrium. Interatrial Septum * There is a small interatrial shunt by color Doppler. Aortic Valve * Trileaflet aortic valve. * Mildly calcified aortic valve leaflets. * Mild aortic regurgitation. * No aortic stenosis. Mitral Valve * Mild mitral regurgitation. Tricuspid Valve * Moderate-severe tricuspid regurgitation. * Estimated RVSP is 56 mmHg. * Estimated RA pressure is 15 mmHg. * Moderate pulmonary hypertension. Pulmonic Valve * Mild pulmonic regurgitation. Aorta * Normally sized aortic root. Pericardium * The pericardium appears normal. IVC * The IVC is dilated. * < 50% respiratory change. Pleural Effusion * Large pleural effusion. Liver Ultrasound 12/07/17 20:00 IMPRESSION: 1. Normal sonographic appearance of the liver. 2. Ascites. 3. Gallbladder wall thickening is nonspecific in the setting of ascites. There is no cholelithiasis or sonographic evidence for acute cholecystitis. D/ / Earl Donis MD / Earl Donis MD Interpreting Provider: Earl Donis MD Head CT 12/08/17 05:47 IMPRESSION: 1. No acute intracranial abnormality. D/ / Ruben Zarate MD / Ruben Zarate MD Interpreting Provider: Ruben Zarate MD - Attending Attestation The history, physical exam, and medical decision making was performed by the medical student either while I was physically present and actively involved or I personally re-performed the exam and medical decision making. I have verified the accuracy of the medical student's documentation with regards to the history, physical exam findings, and medical decision making on <Gaudencio Cavanaugh - Last Filed: 12/08/17 12:45> (1) CHF (congestive heart failure) Qualifiers: Heart failure type: combined systolic and diastolic Heart failure chronicity : unspecified Qualified Code(s): I50.40 - Unspecified combined systolic ( congestive) and diastolic (congestive) heart failure (2) Cirrhosis Qualifiers: Hepatic cirrhosis type: unspecified hepatic cirrhosis Ascites presence: with ascites Qualified Code(s): K74.60 - Unspecified cirrhosis of liver; R18.8 - Other ascites (3) Atrial fibrillation Qualifiers: Atrial fibrillation type: chronic Qualified Code(s): I48.2 - Chronic atrial fibrillation (4) Diabetes Qualifiers: Diabetes mellitus type: type 2 Diabetes mellitus senior living insulin use: without intermediate frame tender use Diabetes mellitus complication status: without complication Qualified Code(s): E11.9 - Type 2 diabetes mellitus without complications (5) Hypertension Qualifiers: Hypertension type: essential hypertension Qualified Code(s): I10 - Essential (primary) hypertension (6) Dementia Qualifiers: Dementia type: Alzheimer's disease Alzheimer's disease onset: late-onset Dementia behavioral disturbance: without behavioral disturbance Qualified Code( s): G30.1 - Alzheimer's disease with late onset; F02.80 - Dementia in other diseases classified elsewhere without behavioral disturbance (7) BPH (benign prostatic hyperplasia) Qualifiers: Lower urinary tract symptom presence: symptoms absent Qualified Code(s): N40.0 - Benign prostatic hyperplasia without lower urinary tract symptoms <Elizabeth Ruiz - Last Filed: 12/08/17 13:46> (1) CHF (congestive heart failure) Qualifiers: Heart failure type: combined systolic and diastolic Heart failure chronicity : acute Qualified Code(s): I50.41 - Acute combined systolic (congestive) and diastolic (congestive) heart failure (2) Cirrhosis Qualifiers: Hepatic cirrhosis type: unspecified hepatic cirrhosis Ascites presence: with ascites Qualified Code(s): K74.60 - Unspecified cirrhosis of liver; R18.8 - Other ascites (3) Atrial fibrillation Qualifiers: Atrial fibrillation type: chronic Qualified Code(s): I48.2 - Chronic atrial fibrillation (4) Diabetes Qualifiers: Diabetes mellitus type: type 2 Diabetes mellitus senior living insulin use: without intermediate frame tender use Diabetes mellitus complication status: without complication Qualified Code(s): E11.9 - Type 2 diabetes mellitus without complications (5) Hypertension Qualifiers: Hypertension type: essential hypertension Qualified Code(s): I10 - Essential (primary) hypertension (6) BPH (benign prostatic hyperplasia) Qualifiers: Lower urinary tract symptom presence: symptoms absent Qualified Code(s): N40.0 - Benign prostatic hyperplasia without lower urinary tract symptoms (7) Dementia Qualifiers: Dementia type: Alzheimer's disease Alzheimer's disease onset: late-onset Dementia behavioral disturbance: without behavioral disturbance Qualified Code( s): G30.1 - Alzheimer's disease with late onset; F02.80 - Dementia in other diseases classified elsewhere without behavioral disturbance
[2017-12-08 15:16] LABS: Amylase,Peritoneal Fluid 10 Units/L (No Ref Range); Glucose,Peritoneal Fluid 173 mg/dL (No Ref Range); LDH,Peritoneal Fluid 102 Units/L (No Ref Range); Total Protein,Peritoneal Fluid < 3.0 g/dL (No Ref Range)
[2017-12-08 15:59] LABS: RBC,Peritoneal Fluid 0.012 M/mcL
[2017-12-08 16:06] LABS: Appearance of Peritoneal Fl CLEAR (Clear)
[2017-12-08] MEDS: Apixaban 5 MG TABLET PO SCH (20:05)
[2017-12-08] MEDS: Neosporin OINT 15 GM TUBE TP SCH (20:06)
[2017-12-09 04:51] LABS: Basophils % 0.5 %; Eosinophils # 0.5 K/mcL (0.0-0.6); Eosinophils % 7.8 %; Hemoglobin 12.8 g/dL (12.9-16.9); Immature Granulocytes % 0.2 % (0-4); Lymphocytes # 0.7 K/mcL (0.6-4.6); Lymphocytes % 10.2 %; Mean Corpuscular HGB Conc 32.8 g/dL (31.6-35.5); Mean Corpuscular Hemoglobin 29.8 pg (28.0-33.3); Mean Corpuscular Volume 90.7 fL (83.0-100.0); Mean Platelet Volume 10.3 fL (9.4-12.4); Monocytes # 0.6 K/mcL (0.0-1.3); Monocytes % 9.5 %; Neutrophils # 4.8 K/mcL (1.6-8.9); Platelet Count 166 K/mcL (140-400); Red Cell Distribution Width 15.3 % (11.5-14.5); Segmented Neutrophils % 71.8 %
[2017-12-09 05:35] LABS: BUN/Creatinine Ratio 26 (6-26); Blood Urea Nitrogen 22 mg/dL (8-23); Calcium 9.2 mg/dL (8.6-10.3); Carbon Dioxide 31 mEq/L (23-29); Chloride 97 mEq/L (98-107); Glucose 130 mg/dL (70-105); Osmolality,Calculated 289 (280-300); Potassium 3.3 mEq/L (3.5-5.1); Sodium 137 mEq/L (136-145); eGFR For Non-African Americans > 60 (> 60)
[2017-12-09] MEDS ORDERED: Regadenoson 0.4 MG/5 ML SYRINGE IVP ONE (05:50)
[2017-12-09] MEDS: Insulin LISPRO 300 UNITS/3 ML VIAL SQ SCH ×2 (07:30→12:12)
[2017-12-09] MEDS: Furosemide 20 MG/2 ML VIAL IVP SCH (10:06)
[2017-12-09] MEDS: Lisinopril 20 MG TABLET PO SCH (10:06)
[2017-12-09] MEDS: Apixaban 5 MG TABLET PO SCH (10:06)
[2017-12-09] MEDS: Neosporin OINT 15 GM TUBE TP SCH (10:07)
[2017-12-09 11:54] VITALS: BP 134/70
--- NOTE | 2017-12-09 13:10 | Discharge Summary ---
<Rebekah Rodriguez - Last Filed: 12/09/17 16:07> - NOTES TO OUTPATIENT PROVIDER Notes to Outpatient Provider: Patient was treated for a CHF exacerbation secondary to non-compliance to medications. He had a TTE=35% which was reduced from prior in 05/2017 of EF 40%. Stress test was performed and negative for new ischemia. Ct abdomen showed cirrhosis but ultrasound was negative for cirrhosis. Hepatitis panel was negative. He had ascitic fluid and tenderness in lower abdomen so a paracentesis was performed and showed PMN so he was prophylactically treated with Ciprofloxacin. He was started on Aldactone. He is to follow up with his optician apprentice dispensing in [place]. He is to have PT as well. 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 (2) Cirrhosis Priority: Secondary Status: Acute Qualifiers: Hepatic cirrhosis type: unspecified hepatic cirrhosis Ascites presence: with ascites Qualified Code(s): K74.60 - Unspecified cirrhosis of liver; R18.8 - Other ascites (3) Atrial fibrillation Priority: Secondary Status: Chronic Qualifiers: Atrial fibrillation type: chronic Qualified Code(s): I48.2 - Chronic atrial fibrillation (4) Diabetes Priority: Secondary Status: Chronic Qualifiers: Diabetes mellitus type: type 2 Diabetes mellitus prison insulin use: without prison use Diabetes mellitus complication status: without complication Qualified Code(s): E11.9 - Type 2 diabetes mellitus without complications (5) Hypertension Priority: Secondary Status: Chronic Qualifiers: Hypertension type: essential hypertension Qualified Code(s): I10 - Essential (primary) hypertension (6) BPH (benign prostatic hyperplasia) Priority: Secondary Status: Chronic Qualifiers: Lower urinary tract symptom presence: symptoms absent Qualified Code(s): N40.0 - Benign prostatic hyperplasia without lower urinary tract symptoms (7) Dementia Priority: Secondary Status: Chronic Qualifiers: Dementia type: Alzheimer's disease Alzheimer's disease onset: late-onset Dementia behavioral disturbance: without behavioral disturbance Qualified Code (s): G30.1 - Alzheimer's disease with late onset; F02.80 - Dementia in other diseases classified elsewhere without behavioral disturbance Hospital course: Mr. Zhang is an 82 y/o male with a history of T2DM, HTN, CAD, IN, Afib and dementia who presented to [facility] on 12/06/17 with the complaint of increased swelling in his legs and abdomen. This had been progressively worsening over the last two months. The patient also had complaints of nausea, constipation and bloating during that time. A HIDA scan was performed 11/29/17, which was normal, and he underwent upper and lower endoscopy on 12/01/17 which showed evidence of gastritis, polyps, and hemorrhoids, but was otherwise unremarkable. In the ED, he admitted to dyspnea on exertion, increasing orthopnea and worsening dementia over the last two months. He takes Demedex and HCTZ at home and believes he may have missed a few doses. Initial examination revealed BLE + 2 pretibial pitting edema, ascites with a positive fluid wave, distant heart and lung sounds, with mild crackles in the lung bases. His vitals were stable. A CXR revealed an enlarged cardiac silhouette and a CT abdomen revealed a moderate amount of ascites with a nodular appearance to the liver. An NNEKA was performed and was normal. Initial labs were significant for BNP 665, troponin 0.05, total bilirubin of 2.0, AST 43, Alk. Phos. 164, and a PT of 20.5. The patient was admitted for a CHF exacerbation, started on fluid restriction, and given IV Lasix. The patient responded well during his hospital admission with a net fluid balance of -3.9L over 3 days. An echo was performed on 12/07/17 which revealed moderate LV systolic dysfunction and severe LV diastolic dysfunction with an EF of 35%. Previous echo 6 months ago showed moderate diastolic dysfunction with LVH and an EF of 40%. His Eliquis was put on hold in anticipation of paracentesis, which was performed 12/08/17 with removal of 0.56L of serosanguinous fluid. Pathology revealed reactive mesothelial cells and inflammatory cells but was negative for any malignancy. The peritoneal fluid was found to be exudative in nature, with an elevated LDH of 102 and 478 total nucleated cells/mcL. As a result, there was concern for the progression to SBP and the patient was given Ciprofloxacin for prophylaxis. A liver ultrasound was also performed on 12/07/17 to assess for signs of cirrhosis and was normal. On 12/09 the patient was sent for cardiac stress testing which was negative for ischemia. There was an apical and an inferior perfusion defect, but these were both deemed to be from either an old scar or a motion artifact. Of note, the patient sustained a fall overnight on 12/08/17 after attempting to ambulate to the bathroom without assistance. He does not have any evidence of bruising and a head CT was negative for ICH. The patient was discharged with the addition of Aldactone and recommendations to follow up with his PCP next week and with cardiology in 1-2 weeks. His daughter was at bedside and stated she would assist him in organizing his medications. Upon discharge he was alert and oriented x3 and stated a clear understanding of the treatment and plan. Discharge discussed with: patient, family, social work - Time Spent with Patient Total time spent providing and/or coordinating discharge services: Greater than 30 minutes - Discharge Medications Prescriptions: Ciprofloxacin HCl [Cipro] 500 mg PO BID #10 tablet Spironolactone [Aldactone] 25 mg PO DAILY #30 tablet Home Medications: Apixaban [Eliquis] 5 mg PO BID 12/06/17 [History] Atorvastatin [Lipitor] 40 mg PO HS 12/06/17 [History] Donepezil [Aricept] 5 mg PO HS 12/06/17 [History] Lisinopril [Zestril] 40 mg PO DAILY 12/06/17 [History] Memantine HCl 10 mg PO DAILY 12/06/17 [History] Nitroglycerin [Nitrostat] 0.4 mg SL Q5M PRN MDD [id number] CALL 911 12/06/17 [ History] Torsemide 5 mg PO DAILY 12/06/17 [History] hydroCHLOROthiazide [Hydrochlorothiazide] 25 mg PO DAILY 12/06/17 [History] metFORMIN [Glucophage] 1,000 mg PO BIDWM 12/06/17 [History] Ciprofloxacin HCl [Cipro] 500 mg PO BID #10 tablet 12/09/17 [Rx] Spironolactone [Aldactone] 25 mg PO DAILY #30 tablet 12/09/17 [Rx] Allergies/Adverse Reactions: 3 Allergy/AdvReac Type Severity Reaction Status Date / Time mold Allergy Nausea Verified 03/16/17 16:34 Penicillins [PCN] Allergy Rash Verified 03/16/17 16:34 dust Allergy Nausea Uncoded 03/16/17 16:34 Date of admission: 12/06/17 17:42 Primary care physician: Timmy Pittman MD Consults: 12/08/17 11:48 Consult to Physical Therapy [CONS] Routine Comment: Evaluate, develop and implement POC Reason for Consult: weakness Does patient have active BEDREST order?: No Is patient medically & hemodynamically stable?: Yes Discharging clinician: Elizabeth Ruiz Anticipated date of discharge: 12/09/17 - Constitutional Vitals: Temp Pulse Resp BP Pulse Ox 98.3 F 71 18 134/70 92 12/09/17 11:51 12/09/17 11:51 12/09/17 11:51 12/09/17 11:51 12/09/17 11:51 General appearance: Present: A&O X 3, pleasant, answers questions appropriately Exam: General: Patient is alert, mild distress, oriented x 3 Head: atraumatic, normocephalic, Respiratory: Good respiratory effort. Basal crackles. No wheezing. Cardiovascular: Regular rate and rhythm. s1 and s2 normal. No clicks, rubs, gallops, or murmurs. Bilateral pedal edema but improved but still more swelling on right leg which is chronic Abdomen: Abdomen is soft, distended, nontender. Bowel sounds are present Musculoskeletal: Spontaneously moving all extremities Neuro: Alert oriented x 3 ,normal cranial nerves, no focal deficits Psych: Patient's affect is normal - Patient Status Disposition: Home Health Service Condition: Fair Functional capacity at discharge: independent ambulation Overall status at discharge: patient is progressing back to baseline - Discharge Instructions Instructions: Ciprofloxacin (By mouth), Spironolactone (By mouth), Heart Failure (DC) Follow Up With: Timmy Pittman MD [Primary Care Provider] - 12/14/17 10:30 am Additional Instructions: -Finish antibiotic -start taking aldactone -make sure to take all blood pressure and CHF medications -follow up with your optician apprentice dispensing in a week or 2 -return to hospital should you develop increased shortness of breath -continue physical therapy - Diet and Activity Activity: resume usual activities as tolerated Diet: low salt diet <Elizabeth Ruiz - Last Filed: 12/09/17 16:58> Orders not resulted at time of discharge: Pending orders 12/08/17 14:17 Cytology [PTH] Routine 12/08/17 16:05 NM aruna perf SPECT multi [NM] Routine Date of Encounter: 12/09/17 Time of Encounter: 09:15 - Discharge Diagnosis (1) CHF (congestive heart failure) Status: Acute Qualifiers: Heart failure type: combined systolic and diastolic Heart failure chronicity: acute Qualified Code(s): I50.41 - 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 (2) Cirrhosis Status: Acute Qualifiers: Hepatic cirrhosis type: unspecified hepatic cirrhosis Ascites presence: with ascites Qualified Code(s): K74.60 - Unspecified cirrhosis of liver; R18.8 - Other ascites (3) Atrial fibrillation Status: Chronic Qualifiers: Atrial fibrillation type: chronic Qualified Code(s): I48.2 - Chronic atrial fibrillation (4) Diabetes Status: Chronic Qualifiers: Diabetes mellitus type: type 2 Diabetes mellitus paying teller insulin use: without paying teller use Diabetes mellitus complication status: without complication Qualified Code(s): E11.9 - Type 2 diabetes mellitus without complications (5) Hypertension Status: Chronic Qualifiers: Hypertension type: essential hypertension Qualified Code(s): I10 - Essential (primary) hypertension (6) BPH (benign prostatic hyperplasia) Status: Chronic Qualifiers: Lower urinary tract symptom presence: symptoms absent Qualified Code(s): N40.0 - Benign prostatic hyperplasia without lower urinary tract symptoms (7) Dementia Status: Chronic Qualifiers: Dementia type: Alzheimer's disease Alzheimer's disease onset: late-onset Dementia behavioral disturbance: without behavioral disturbance Qualified Code (s): G30.1 - Alzheimer's disease with late onset; F02.80 - Dementia in other diseases classified elsewhere without behavioral disturbance Hospital course: Mr. Zhang is a 82 year old male - Time Spent with Patient Total time spent providing and/or coordinating discharge services: Greater than 30 minutes (32 min) Date of admission: 12/06/17 17:42 Primary care physician: Timmy Pittman MD Consults: 12/08/17 11:48 Consult to Physical Therapy [CONS] Routine Comment: Evaluate, develop and implement POC Reason for Consult: weakness Does patient have active BEDREST order?: No Is patient medically & hemodynamically stable?: Yes 12/09/17 13:30 Consult to Abrasive Sawyer [CONS] Routine Reason for SW Consult: home health set up for discharge - Constitutional Vitals: Temp Pulse Resp BP Pulse Ox 98.3 F 71 18 134/70 92 12/09/17 11:51 12/09/17 11:51 12/09/17 11:51 12/09/17 11:51 12/09/17 11:51 - Attending Attestation I saw evaluated and examined this patient and my medical decision-making was reviewed with the Resident Physician, Rebekah Rodriguez. I agree with the documented findings, disposition and treatment plan as described except to any changes set forth below. We independently had [id number] contact with the patient. 82-year-old male patient was hospitalized here with acute on chronic congestive heart failure and abdominal ascites. He was treated with intravenous Lasix and also underwent abdominal diagnostic paracentesis. Patient did complain of abdominal pain that was intermittent. While his lower extremity edema and CHF improved, patient also sustained a fall which was mechanical. He had previously been on anticoagulation for atrial fibrillation which was held for his abdominal paracentesis. A CT scan of the head was done and did not show any acute bleed. Today echocardiogram done here showed EF of 35% which was less than the40% per his prior echo. The patient underwent stress test per cardiology recommendations as did not show any signs of ischemia. His ascites fluid appears to be transudate. But he did have 450 neutrophils. Given that he has also been having abdominal pain, he will be treated for possible spontaneous bacterial peritonitis with ciprofloxacin. At this time is clinically stable to be discharged. He will be discharged home with home health and physical therapy. On today's exam, patient was awake and alert. Pedal edema is improving. Abdomen is soft, nontender. Heart sounds are normal. Breath sounds are also normal.
--- NOTE | 2017-12-09 23:28 | Electrocardiograph Report ---
[address] [address] Test Date: 2017-12-06 Pat Name: Todd Zhang Department: [id number] Room: 3B Gender: M Guest Services Officer: : [id number] Requested By: Liliana Srinivasan Order Number: [id number] Reading MD: Herminia Nolen Measurements Intervals [place] Rate: 71 P: SC: QRS: -76 QRSD: 189 T: 102 QT: 481 QTc: 523 Interpretive Statements Vventricular-paced rhythm Electronically Signed On 12-09-2017 23:27:16 EDT by Herminia Nolen
== END 2017-12-09 14:17 | disposition home health service (06) ==
LOC: 3BNU 11:20 → EMEROOARM 11:20 → SUATTDRO 17:42 → 3BNU 18:54
PROVIDERS: ADMIT Student in an Organized Health Care Education/Training Program; ATTEND Internal Medicine

== ENCOUNTER 2020-11-12 11:03 | Inpatient (IN) ==
[2020-11-12 11:50] LABS: Basophils % 0.4 %; Eosinophils # 0.1 K/mcL (0.0-0.6); Eosinophils % 1.3 %; Hemoglobin 13.6 g/dL (12.9-16.9); Immature Granulocytes % 0.3 % (0-4); Lymphocytes # 1.1 K/mcL (0.6-4.6); Lymphocytes % 15.8 %; Mean Corpuscular HGB Conc 33.2 g/dL (31.6-35.5); Mean Corpuscular Hemoglobin 31.1 pg (28.0-33.3); Mean Corpuscular Volume 93.6 fL (83.0-100.0); Mean Platelet Volume 10.2 fL (9.4-12.4); Monocytes # 0.6 K/mcL (0.0-1.3); Monocytes % 8.2 %; Neutrophils # 5.1 K/mcL (1.6-8.9); Platelet Count 185 K/mcL (140-400); Red Blood Count 4.38 M/mcL (4.19-5.50); Red Cell Distribution Width 13.2 % (11.5-14.5); White Blood Count 6.9 K/mcL (4.3-11.1)
[2020-11-12 12:06] LABS: BUN/Creatinine Ratio 28 (6-26); Blood Urea Nitrogen 37 mg/dL (8-23); Carbon Dioxide 26 mEq/L (23-29); Chloride 98 mEq/L (98-107); Glucose 132 mg/dL (70-105); Osmolality,Calculated 281 (280-300); Potassium 4.9 mEq/L (3.5-5.1); Sodium 130 mEq/L (136-145); eGFR For African Americans > 60 (> 60); eGFR For Non-African Americans 50 (> 60)
[2020-11-12] MEDS ORDERED: Clindamycin 600 MG/50 ML 600 MG/50 ML IV.SOLN IVPB STA (12:17)
[2020-11-12 13:22] LABS: Estimated Average Glucose 166 mg/dl; Hemoglobin A1C 7.4 %
[2020-11-12] MEDS ORDERED: Perflutren Lipid Microsphere 1.3 ML in 0.9 % Sodium Chloride 8.7 ML IVP PRN (14:08)
[2020-11-12] MEDS ORDERED: *HR* Heparin 5,000 UNIT/ML VIAL IVP ONE (14:08)
[2020-11-12] MEDS ORDERED: *HR* Heparin 5,000 UNIT/ML VIAL IVP PRN ×2 (14:08)
[2020-11-12] MEDS ORDERED: Ondansetron 4 MG/2 ML VIAL IVP PRN (14:09)
[2020-11-12] MEDS ORDERED: Naloxone 0.4 MG/ML INJ IVP PRN (14:09)
[2020-11-12] MEDS ORDERED: 0.9 % Sodium Chloride 1,000 ML IVC SCH (14:15)
[2020-11-12] MEDS ORDERED: Heparin 25,000UNIT/250ML 1/2NS 25,000 UNIT/250 ML IV.SOLN IVC SCH (14:15)
[2020-11-12] MEDS ORDERED: D5% in Water 1,000 ML IVC PRN (14:21)
[2020-11-12] MEDS ORDERED: Dextrose Gel 15 GM/37.5 ML TUBE PO PRN ×2 (14:21)
[2020-11-12] MEDS ORDERED: *HR* Dextrose 50 % in Water (Vial) 50 ML VIAL IVP PRN (14:21)
[2020-11-12 15:03] LABS: Hematocrit 40.9 % (37.5-50.1); Hemoglobin 13.5 g/dL (12.9-16.9); Mean Corpuscular Volume 93.8 fL (83.0-100.0); Mean Platelet Volume 10.1 fL (9.4-12.4); Platelet Count 180 K/mcL (140-400); Red Blood Count 4.36 M/mcL (4.19-5.50); Red Cell Distribution Width 13.1 % (11.5-14.5); White Blood Count 7.3 K/mcL (4.3-11.1)
[2020-11-12 15:15] LABS: INR 1.7; Prothrombin Time 19.5 Seconds (9.4-12.1)
[2020-11-12 16:54] LABS: Activated Partial Thrombo Time 34.6 Seconds (26.0-36.0)
[2020-11-12] MEDS: carvediloL 6.25 MG TABLET PO SCH (17:24)
[2020-11-12] MEDS: Heparin 25,000UNIT/250ML 1/2NS 25,000 UNIT/250 ML IV.SOLN IVC SCH (17:24)
[2020-11-12] MEDS: Insulin LISPRO 300 UNITS/3 ML VIAL SUBQ SCH ×2 (17:25→22:09)
[2020-11-12] MEDS: Clindamycin 600 MG/50 ML 600 MG/50 ML IV.SOLN IVPB SCH (22:08)
[2020-11-13] MEDS: Clindamycin 600 MG/50 ML 600 MG/50 ML IV.SOLN IVPB SCH ×3 (04:50→20:18)
[2020-11-13 06:19] LABS: Basophils % 0.2 %; Eosinophils # 0.1 K/mcL (0.0-0.6); Eosinophils % 2.3 %; Hemoglobin 12.3 g/dL (12.9-16.9); Immature Granulocytes % 0.4 % (0-4); Lymphocytes % 18.9 %; Mean Corpuscular HGB Conc 33.2 g/dL (31.6-35.5); Mean Corpuscular Hemoglobin 30.8 pg (28.0-33.3); Mean Corpuscular Volume 92.5 fL (83.0-100.0); Mean Platelet Volume 10.5 fL (9.4-12.4); Monocytes # 0.6 K/mcL (0.0-1.3); Monocytes % 11.7 %; Neutrophils # 3.5 K/mcL (1.6-8.9); Platelet Count 156 K/mcL (140-400); Red Cell Distribution Width 12.9 % (11.5-14.5); Segmented Neutrophils % 66.5 %; White Blood Count 5.3 K/mcL (4.3-11.1)
[2020-11-13 06:37] LABS: BUN/Creatinine Ratio 29 (6-26); Blood Urea Nitrogen 36 mg/dL (8-23); Calcium 8.9 mg/dL (8.6-10.3); Carbon Dioxide 24 mEq/L (23-29); Chloride 104 mEq/L (98-107); Glucose 149 mg/dL (70-105); Osmolality,Calculated 289 (280-300); Potassium 4.3 mEq/L (3.5-5.1); Sodium 134 mEq/L (136-145); eGFR For African Americans > 60 (> 60); eGFR For Non-African Americans 55 (> 60)
[2020-11-13] MEDS: Insulin LISPRO 300 UNITS/3 ML VIAL SUBQ SCH ×4 (07:53→20:26)
[2020-11-13] MEDS: Torsemide 20 MG TABLET PO SCH (08:16)
[2020-11-13] MEDS: Finasteride 5 MG TABLET PO SCH (08:17)
[2020-11-13] MEDS: carvediloL 6.25 MG TABLET PO SCH ×2 (08:17→16:54)
[2020-11-13] MEDS: Spironolactone 25 MG TABLET PO SCH (08:17)
[2020-11-13] MEDS ORDERED: Regadenoson 0.4 MG/5 ML SYRINGE IVP ONE ×2 (08:58→09:20)
[2020-11-13] MEDS ORDERED: *HR* Propofol 200 MG/20 ML VIAL IVP ONE (09:38)
[2020-11-13] MEDS ORDERED: *HR* FentaNYL (PF) 100 MCG/2 ML VIAL ONE (09:38)
[2020-11-13] MEDS ORDERED: Lidocaine -MPF 2% 2 ML VIAL ONE (09:41)
[2020-11-13] MEDS ORDERED: Docusate Oral Soln 100 MG/10 ML UDC PO PRN (14:18)
[2020-11-13] MEDS ORDERED: 0.9 % Sodium Chloride 1,000 ML IVC SCH (14:30)
[2020-11-13] MEDS: Ranolazine 500 MG TAB.ER.12H PO SCH (20:18)
[2020-11-13] MEDS: Heparin 25,000UNIT/250ML 1/2NS 25,000 UNIT/250 ML IV.SOLN IVC SCH (23:59)
[2020-11-14] MEDS: Clindamycin 600 MG/50 ML 600 MG/50 ML IV.SOLN IVPB SCH ×3 (04:16→20:45)
[2020-11-14 07:03] LABS: Basophils % 0.5 %; Eosinophils # 0.1 K/mcL (0.0-0.6); Eosinophils % 1.9 %; Hematocrit 35.8 % (37.5-50.1); Hemoglobin 11.9 g/dL (12.9-16.9); Immature Granulocytes % 0.3 % (0-4); Lymphocytes # 1.2 K/mcL (0.6-4.6); Lymphocytes % 18.5 %; Mean Corpuscular HGB Conc 33.2 g/dL (31.6-35.5); Mean Corpuscular Hemoglobin 30.7 pg (28.0-33.3); Mean Corpuscular Volume 92.3 fL (83.0-100.0); Mean Platelet Volume 9.9 fL (9.4-12.4); Monocytes # 0.7 K/mcL (0.0-1.3); Monocytes % 10.4 %; Neutrophils # 4.4 K/mcL (1.6-8.9); Platelet Count 156 K/mcL (140-400); Red Blood Count 3.88 M/mcL (4.19-5.50); Red Cell Distribution Width 13.2 % (11.5-14.5); Segmented Neutrophils % 68.4 %; White Blood Count 6.4 K/mcL (4.3-11.1)
[2020-11-14 07:23] LABS: BUN/Creatinine Ratio 28 (6-26); Blood Urea Nitrogen 33 mg/dL (8-23); Calcium 9.1 mg/dL (8.6-10.3); Carbon Dioxide 24 mEq/L (23-29); Chloride 104 mEq/L (98-107); Glucose 118 mg/dL (70-105); Osmolality,Calculated 288 (280-300); Potassium 4.3 mEq/L (3.5-5.1); Sodium 135 mEq/L (136-145); eGFR For African Americans > 60 (> 60); eGFR For Non-African Americans 57 (> 60)
[2020-11-14] MEDS: Insulin LISPRO 300 UNITS/3 ML VIAL SUBQ SCH ×4 (08:02→21:06)
[2020-11-14] MEDS: Spironolactone 25 MG TABLET PO SCH (08:12)
[2020-11-14] MEDS: Finasteride 5 MG TABLET PO SCH (08:12)
[2020-11-14] MEDS: carvediloL 6.25 MG TABLET PO SCH ×2 (08:13→16:14)
[2020-11-14] MEDS: Ranolazine 500 MG TAB.ER.12H PO SCH ×2 (08:13→20:45)
[2020-11-14] MEDS: Torsemide 20 MG TABLET PO SCH (08:14)
[2020-11-14] MEDS ORDERED: *HR* Propofol 200 MG/20 ML VIAL IVP ONE (15:25)
[2020-11-14] MEDS ORDERED: *HR* FentaNYL (PF) 100 MCG/2 ML VIAL ONE (15:25)
[2020-11-14] MEDS ORDERED: Lidocaine -MPF 2% 2 ML VIAL ONE (15:25)
[2020-11-14] MEDS ORDERED: Bupivacaine/EPI 1:200k 0.25% 50 ML VIAL ONE (16:03)
[2020-11-14] MEDS ORDERED: *HR* FentaNYL (PF) 100 MCG/2 ML VIAL IVP PRN ×2 (16:15→17:11)
[2020-11-14] MEDS ORDERED: Albuterol 2.5 MG/3 ML NEBULIZER IH PRN ×2 (16:15→17:11)
[2020-11-14] MEDS ORDERED: Naloxone 0.4 MG/ML INJ IVP PRN ×3 (16:15→17:11)
[2020-11-14] MEDS ORDERED: Ondansetron 4 MG/2 ML VIAL IVP PRN ×3 (16:15→17:11)
[2020-11-14] MEDS ORDERED: Nitroglycerin 0.4 MG TAB.SUBL SL PRN ×2 (16:15→17:11)
[2020-11-14] MEDS ORDERED: Lidocaine 1% 20 ML MDV ONE (16:19)
[2020-11-14] MEDS ORDERED: Perflutren Lipid Microsphere 1.3 ML in 0.9 % Sodium Chloride 8.7 ML IVP PRN (17:11)
[2020-11-14] MEDS ORDERED: Dextrose Gel 15 GM/37.5 ML TUBE PO PRN ×2 (17:11)
[2020-11-14] MEDS ORDERED: Heparin 25,000UNIT/250ML 1/2NS 25,000 UNIT/250 ML IV.SOLN IVC SCH (17:11)
[2020-11-14] MEDS ORDERED: *HR* Dextrose 50 % in Water (Vial) 50 ML VIAL IVP PRN (17:11)
[2020-11-14] MEDS ORDERED: *HR* Heparin 5,000 UNIT/ML VIAL IVP PRN ×2 (17:11)
[2020-11-14] MEDS ORDERED: D5% in Water 1,000 ML IVC PRN (17:11)
[2020-11-14] MEDS ORDERED: Docusate Oral Soln 100 MG/10 ML UDC PO PRN (17:11)
[2020-11-15 03:27] LABS: Basophils % 0.2 %; Eosinophils # 0.1 K/mcL (0.0-0.6); Eosinophils % 1.8 %; Hematocrit 36.3 % (37.5-50.1); Hemoglobin 12.1 g/dL (12.9-16.9); Immature Granulocytes % 0.2 % (0-4); Lymphocytes # 0.9 K/mcL (0.6-4.6); Lymphocytes % 17.5 %; Mean Corpuscular HGB Conc 33.3 g/dL (31.6-35.5); Mean Corpuscular Hemoglobin 30.7 pg (28.0-33.3); Mean Corpuscular Volume 92.1 fL (83.0-100.0); Mean Platelet Volume 10.3 fL (9.4-12.4); Monocytes # 0.6 K/mcL (0.0-1.3); Monocytes % 11.2 %; Neutrophils # 3.4 K/mcL (1.6-8.9); Platelet Count 154 K/mcL (140-400); Red Blood Count 3.94 M/mcL (4.19-5.50); Red Cell Distribution Width 13.1 % (11.5-14.5); Segmented Neutrophils % 69.1 %; White Blood Count 4.9 K/mcL (4.3-11.1)
[2020-11-15 03:53] LABS: BUN/Creatinine Ratio 27 (6-26); Blood Urea Nitrogen 28 mg/dL (8-23); Carbon Dioxide 23 mEq/L (23-29); Chloride 103 mEq/L (98-107); Glucose 176 mg/dL (70-105); Osmolality,Calculated 282 (280-300); Potassium 4.1 mEq/L (3.5-5.1); Sodium 131 mEq/L (136-145); eGFR For African Americans > 60 (> 60); eGFR For Non-African Americans > 60 (> 60)
[2020-11-15] MEDS: Clindamycin 600 MG/50 ML 600 MG/50 ML IV.SOLN IVPB SCH ×3 (05:14→20:13)
[2020-11-15] MEDS: Spironolactone 25 MG TABLET PO SCH (08:19)
[2020-11-15] MEDS: Ranolazine 500 MG TAB.ER.12H PO SCH ×2 (08:20→20:13)
[2020-11-15] MEDS: carvediloL 6.25 MG TABLET PO SCH ×2 (08:20→16:57)
[2020-11-15] MEDS: Finasteride 5 MG TABLET PO SCH (08:20)
[2020-11-15] MEDS: Torsemide 20 MG TABLET PO SCH (08:20)
[2020-11-15] MEDS: Insulin LISPRO 300 UNITS/3 ML VIAL SUBQ SCH ×4 (08:21→21:44)
[2020-11-15] MEDS: Apixaban 5 MG TABLET PO SCH ×2 (08:38→20:13)
[2020-11-15] MEDS ORDERED: *HR* HYDROcodone/Acet 5/325 mg TABLET PO ONE (21:06)
[2020-11-15] MEDS ORDERED: tiZANidine 4 MG TABLET PO ONE (21:06)
[2020-11-16] MEDS: Clindamycin 600 MG/50 ML 600 MG/50 ML IV.SOLN IVPB SCH (04:09)
[2020-11-16] MEDS ORDERED: *HR* HYDROcodone/Acet 5/325 mg TABLET PO ONE (05:24)
[2020-11-16 07:07] LABS: Basophils % 0.1 %; Eosinophils # 0.1 K/mcL (0.0-0.6); Eosinophils % 1.6 %; Hematocrit 35.6 % (37.5-50.1); Hemoglobin 11.8 g/dL (12.9-16.9); Immature Granulocytes % 0.3 % (0-4); Lymphocytes % 14.1 %; Mean Corpuscular HGB Conc 33.1 g/dL (31.6-35.5); Mean Corpuscular Hemoglobin 30.9 pg (28.0-33.3); Mean Corpuscular Volume 93.2 fL (83.0-100.0); Mean Platelet Volume 10.3 fL (9.4-12.4); Monocytes # 0.7 K/mcL (0.0-1.3); Neutrophils # 5.1 K/mcL (1.6-8.9); Platelet Count 145 K/mcL (140-400); Red Blood Count 3.82 M/mcL (4.19-5.50); Red Cell Distribution Width 13.2 % (11.5-14.5); Segmented Neutrophils % 73.9 %; White Blood Count 6.9 K/mcL (4.3-11.1)
[2020-11-16 07:28] LABS: BUN/Creatinine Ratio 25 (6-26); Blood Urea Nitrogen 28 mg/dL (8-23); Calcium 9.3 mg/dL (8.6-10.3); Carbon Dioxide 26 mEq/L (23-29); Chloride 101 mEq/L (98-107); Glucose 131 mg/dL (70-105); Osmolality,Calculated 283 (280-300); Potassium 4.1 mEq/L (3.5-5.1); Sodium 133 mEq/L (136-145); eGFR For African Americans > 60 (> 60); eGFR For Non-African Americans > 60 (> 60)
[2020-11-16] MEDS: Ranolazine 500 MG TAB.ER.12H PO SCH (08:18)
[2020-11-16] MEDS: Torsemide 20 MG TABLET PO SCH (08:19)
[2020-11-16] MEDS: Spironolactone 25 MG TABLET PO SCH (08:19)
[2020-11-16] MEDS: carvediloL 6.25 MG TABLET PO SCH (08:19)
[2020-11-16] MEDS: Finasteride 5 MG TABLET PO SCH (08:20)
[2020-11-16] MEDS: Apixaban 5 MG TABLET PO SCH (08:20)
[2020-11-16] MEDS ORDERED: *HR* HYDROcodone/Acet 10/325 mg TABLET PO ONE (08:37)
[2020-11-16] MEDS: Insulin LISPRO 300 UNITS/3 ML VIAL SUBQ SCH (08:57)
[2020-11-16 11:11] VITALS: BP 106/64; PULSE 48; TEMP 97.7; O2SAT 98
== END 2020-11-16 15:00 | disposition home health service (06) | DRG 617 ==
LOC: EMEROOARM 11:03 → 3NENU 11:03 → SUATTDRO 13:42 → 3NENU 14:38
PROVIDERS: ADMIT Internal Medicine; ATTEND Family Medicine